=== PATIENT | male | born 1995 | race Caucasian/White ===

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

== ENCOUNTER 2017-01-29 18:46 | Observation (INO) | payer SELFPAY ==
[2017-01-29] MEDS ORDERED: HYDROmorphONE/DILAUDID 1 MG/ML INJ IVP ONE (19:42)
[2017-01-29 19:59] LABS: % IMMATURE GRANULYOCYTES 0.6 % (0.0-1.1); ABSOLUTE IMMATURE GRANULOCYTES 0.08 10^3/uL (0.00-0.10); ADD DIFF? NO; ADD MORPH? NO; ADD SCAN? NO; ATYPICAL LYMPHOCYTE FLAG 10 (0-99); FRAGMENT RBC FLAG 0 (0-99); HEMATOCRIT 42.2 % (40.0-51.0); HEMOGLOBIN 14.6 g/dL (13.7-17.5); LEFT SHIFT FLG 0 (0-99); LIPEMIA HEMOLYSIS FLAG 90 (0-99); MEAN CELL HEMOGLOBIN 30.4 pg (27.9-34.1); MEAN CELL HEMOGLOBIN CONCENTR. 34.6 g/dL (32.4-36.7); MEAN CELL VOLUME 87.9 fL (81.5-99.8); MEAN PLATELET VOLUME 9.4 fL (8.7-11.7); PLATELET CLUMPS FLAG 10 (0-99); PLATELET COUNT 322 10^3/uL (150-400); RED CELL DISTRIBUTION WIDTH 11.7 % (11.5-15.2)
[2017-01-29 20:12] LABS: ANION GAP 13 mEq/L (8-16); CALCIUM 9.1 mg/dL (8.5-10.4); CARBON DIOXIDE 23 mEq/l (22-31); CHLORIDE 102 mEq/L (97-110); CREATININE 0.9 mg/dL (0.7-1.3); GLOMERULAR FILTRATION RATE > 60; GLUCOSE 108 mg/dL (70-100); SODIUM 138 mEq/L (134-144)
[2017-01-29] MEDS ORDERED: IBUPROFEN 600 MG TAB PO ONE (20:44)
--- NOTE | 2017-01-29 20:50 | EDPHY ---
H & P Stated Complaint: cyst on tailbone Time Seen by Provider: 01/29/17 19:26 HPI/ROS: CHIEF COMPLAINT: cyst HISTORY OF PRESENT ILLNESS: 21-year-old male presents emergency department with his complaining of a cyst on his butt with subjective fevers and chills and a headache. Patient states he developed pain 5 days ago that has worsened along with swelling. Patient has been taking Tylenol intermittently with mild relief of pain. Patient reports pain with bowel movements. No shortness of breath or chest pain, no lightheadedness. No other complaints. REVIEW OF SYSTEMS: A comprehensive 10 point review of systems is otherwise negative aside from elements mentioned in the history of present illness. Source: Patient Exam Limitations: No limitations - Personal History Current Tetanus/Diphtheria Vaccine: No - Medical/Surgical History Hx Asthma: No Hx Chronic Respiratory Disease: No Hx Diabetes: No Hx Cardiac Disease: No Hx Renal Disease: No Hx Cirrhosis: No Hx Alcoholism: No Hx HIV/AIDS: No Hx Splenectomy or Spleen Trauma: No Other PMH: PMHx: denies. PSHx: denies - Social History Smoking Status: Never smoked - Physical Exam Exam: Physical Exam Gen: Alert and Oriented, NAD HEENT: PERRL, moist mucous membranes NECK: no meningismus CV: regular rate and regular rhythm PULM: CTAB, no wheezes ABDOMEN: soft, non tender to palpation, BS present BACK: 4 cm x 4 cm area of induration, erythema, fluctuance to proximal gluteal cleft : no scrotal pain or swelling NEURO: Neurologically grossly intact EXTREMITIES: normal appearing SKIN: no rash or break in skin on exposed skin PSYCH: answers questions appropriately. Constitutional: Initial Vital Signs Temperature (C) 37.8 C 01/29/17 19:11 Heart Rate 110 H 01/29/17 19:11 Respiratory Rate 16 01/29/17 19:11 Blood Pressure 155/77 H 01/29/17 19:11 O2 Sat (%) 97 01/29/17 19:11 O2 Delivery Mode Room Air Allergies/Adverse Reactions: No Known Allergies Allergy (Unverified 07/04/16 07:46) Home Medications: Medication Instructions Recorded NK [No Known Home Meds] 01/29/17 Medical Decision Making Procedures: Procedure: Incision and Drainage abscess. The patient's abscess was located on the proximal gluteal cleft. Risks, benefits, alternatives discussed with the patient and consent obtained. The area was prepped and draped in sterile fashion. The patient received local anesthesia with 1% lidocaine with epinephrine. The abscess was incised with a # 11 blade and purulent drainage was expressed. The patient tolerated the procedure well. The procedure was performed by myself. ED Course/Re-evaluation: 21-year-old male presents with a pilonidal cyst x5 days with subjective fevers and chills. Patient presents with a temperature of 37.8degrees and heart [place] [address]. Abscess was drained, wound culture obtained along with blood cultures. Patient is given a gram of ertapenem and admitted to the hospitalist for observation. - Data Points Laboratory Results: Laboratory Results 01/29/17 19:45 01/29/17 19:45 01/29/17 01/29/17 19:45 19:45 WBC 14.11 10^3/uL H 10^3/uL (3.80-9.50) RBC 4.80 10^6/uL 10^6/uL (4.40-6.38) Hgb 14.6 g/dL g/dL (13.7-17.5) Hct 42.2 % % (40.0-51.0) MCV 87.9 fL fL (81.5-99.8) MCH 30.4 pg pg (27.9-34.1) MCHC 34.6 g/dL g/dL (32.4-36.7) RDW 11.7 % % (11.5-15.2) Plt Count 322 10^3/uL 10^3/uL (150-400) MPV 9.4 fL fL (8.7-11.7) Neut % (Auto) 67.5 % % (39.3-74.2) Lymph % (Auto) 23.0 % % (15.0-45.0) Morrison % (Auto) 8.1 % % (4.5-13.0) Eos % (Auto) 0.4 % L % (0.6-7.6) Baso % (Auto) 0.4 % % (0.3-1.7) Nucleat RBC Rel Count 0.0 % % (0.0-0.2) Absolute Neuts (auto) 9.54 10^3/uL H 10^3/uL (1.70-6.50) Absolute Lymphs (auto) 3.25 10^3/uL H 10^3/uL (1.00-3.00) Absolute Monos (auto) 1.14 10^3/uL H 10^3/uL (0.30-0.80) Absolute Eos (auto) 0.05 10^3/uL 10^3/uL (0.03-0.40) Absolute Basos (auto) 0.05 10^3/uL 10^3/uL (0.02-0.10) Absolute Nucleated RBC 0.00 10^3/uL 10^3/uL (0-0.01) Immature Gran % 0.6 % % (0.0-1.1) Immature Gran # 0.08 10^3/uL 10^3/uL (0.00-0.10) Sodium 138 mEq/L mEq/L (134-144) Potassium 4.0 mEq/L mEq/L (3.5-5.2) Chloride 102 mEq/L mEq/L (97-110) Carbon Dioxide 23 mEq/l mEq/l (22-31) Anion Gap 13 mEq/L mEq/L (8-16) BUN 19 mg/dL mg/dL (7-23) Creatinine 0.9 mg/dL mg/dL (0.7-1.3) Estimated GFR > 60 Glucose 108 mg/dL H mg/dL (70-100) Calcium 9.1 mg/dL mg/dL (8.5-10.4) Medications Given: Discontinued Medications Hydromorphone HCl (Dilaudid) 1 mg IVP EDNOW ONE Stop: 01/29/17 19:43 Last Admin: 01/29/17 19:55 Dose: 1 mg Departure - Departure Disposition: [facility] Clinical Impression: Pilonidal cyst with abscess Fever Qualifiers: Fever type: unspecified Qualified Code(s): R50.9 - Fever, unspecified Condition: Good Referrals: NONE *PRIMARY CARE P,. [Primary Care Provider] - As per Instructions
[2017-01-29] MEDS ORDERED: ERTAPENEM 1 GM in NS 100 ML IV ONE (20:53)
[2017-01-29] MEDS ORDERED: NS 1,000 ML IV ONE ×2 (21:01)
[2017-01-29] MEDS ORDERED: oxyCODONE IR 5 MG TAB PO PRN (21:04)
[2017-01-29] MEDS ORDERED: ONDANSETRON DISINTEGRATING 4 MG TAB PO PRN (21:04)
[2017-01-29] MEDS ORDERED: ONDANSETRON 4 MG/2 ML VIAL IVP PRN (21:04)
[2017-01-29] MEDS ORDERED: NS 1,000 ML IV SCH (21:15)
[2017-01-29] MEDS: ACETAMINOPHEN 325 MG TAB PO PRN (21:38)
--- NOTE | 2017-01-29 21:48 | GHP ---
[f rep st] HISTORY AND PHYSICAL DATE OF ADMISSION: 01/29/2017 HISTORY OF PRESENT ILLNESS: The patient is a 21-year-old gentleman with no past medical history, pre sented with enlarging, painful growth on his tailbone over the last couple of days. It felt like a p imple, but then it did not go away. His had told him to go ahead and get it taken care of, and h e did not. He presented today where he had a pilonidal cyst drained per the ER PA with whom I spoke, Monique Kenny. The patient had about a cup of pus came out. The patient was tachycardic and with a low-grade temp on presentation, he remains tachycardic. The patient denies chest pain, shortness of breath. He has had some subjective fever and chills but no rigors. Did not have any past medical history. PAST MEDICAL HISTORY: None. ALLERGIES: None. MEDICATIONS: None. SOCIAL HISTORY: No tobacco, no alcohol. 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 FAMILY HISTORY: Mother has diabetes. PHYSICAL EXAMINATION: VITAL SIGNS: Temp 37.8, blood pressure 155/77, pulse 110, breathing 16 times a minute, 97% on room air. GENERAL: In no acute distress. HEENT: Sclerae anicteric. Oropharynx c lear. Mucous membranes moist. NECK: Supple with no lymphadenopathy or JVD. LUNGS: Clear to auscu ltation bilaterally. HEART: S1, S2. Tachycardic. ABDOMEN: Soft, nontender, nondistended. On his tailbone he has an incised incision and drained pilonidal cyst. LOWER EXTREMITIES: Without edema. Calves are nontender. SKIN: Without rash. NEUROLOGIC: Nonfocal. LABORATORY DATA: White count 14, hematocrit 42, platelets are 322,000. Venous lactate 1.2. Sodium 138, potassium 4.0, chloride 102, bicarb 22, BUN 19, creatinine 0.9, glucose 108. There is no imagin g. I have discussed the case with YONI Basurto. ASSESSMENT AND PLAN: A 21-year-old gentleman with pilonidal cyst and fever. 1. Fever. I suspect this is secondary to the pilonidal cyst. It is reasonable that IV fluid resusc itated him, given ertapenem. I will not continue antibiotics. He received a dose tonight and we can re-evaluate him in the morning. 2. Question sepsis, no. 3. Prophylaxis. Pharmacologic prophylaxis is not indicated. He is 21. He is low risk. 4. Pain. Will give him some p.r.n. oxycodone. DISPOSITION: Observation status. /[id number]/MODL
[2017-01-30 04:47] LABS: % IMMATURE GRANULYOCYTES 0.5 % (0.0-1.1); ABSOLUTE IMMATURE GRANULOCYTES 0.06 10^3/uL (0.00-0.10); ADD DIFF? NO; ADD MORPH? NO; ADD SCAN? NO; ATYPICAL LYMPHOCYTE FLAG 10 (0-99); FRAGMENT RBC FLAG 0 (0-99); HEMATOCRIT 41.3 % (40.0-51.0); LEFT SHIFT FLG 0 (0-99); LIPEMIA HEMOLYSIS FLAG 90 (0-99); MEAN CELL HEMOGLOBIN 30.1 pg (27.9-34.1); MEAN CELL HEMOGLOBIN CONCENTR. 33.9 g/dL (32.4-36.7); MEAN CELL VOLUME 88.8 fL (81.5-99.8); MEAN PLATELET VOLUME 9.7 fL (8.7-11.7); PLATELET CLUMPS FLAG 0 (0-99); PLATELET COUNT 275 10^3/uL (150-400); RED BLOOD CELL COUNT 4.65 10^6/uL (4.40-6.38); RED CELL DISTRIBUTION WIDTH 11.7 % (11.5-15.2)
[2017-01-30 05:11] LABS: ANION GAP 9 mEq/L (8-16); CALCIUM 8.5 mg/dL (8.5-10.4); CARBON DIOXIDE 25 mEq/l (22-31); CHLORIDE 107 mEq/L (97-110); CREATININE 0.9 mg/dL (0.7-1.3); GLOMERULAR FILTRATION RATE > 60; GLUCOSE 110 mg/dL (70-100); POTASSIUM 3.8 mEq/L (3.5-5.2); SODIUM 141 mEq/L (134-144)
[2017-01-30 08:16] VITALS: BP 129/70; PULSE 64; RESP 17; TEMP 97.9; O2SAT 99
--- NOTE | 2017-01-30 10:14 | ASMTCMCOM ---
CM Note CM Note Notes: Chart reviewed, pt is a 21 y/o man admitted w/ pilonidal cyst and fever. Pt will most likely discharge independent when medically stable w/ supportive . No therapies ordered. CM available for changes. Date Signed: 01/30/2017 10:14 AM Electronically Signed By:KELBY Salas
[2017-01-30] MEDS: ACETAMINOPHEN 325 MG TAB PO PRN (10:24)
[2017-01-30] MEDS ORDERED: CEPHALEXIN 500 MG CAP PO SCH (11:15)
--- NOTE | 2017-01-30 11:21 | PDDCSUM ---
Discharge Summary Discharge Summary: DISCHARGE SUMMARY FOLLOW-UP ITEMS: Wound reassessment, wound culture pending at time discharge DATE OF ADMISSION: 01/29/2017 DATE OF DISCHARGE: 01/30/2017 DISCHARGE DIAGNOSES: 1. Acute cellulitis 2. Abscess 3. Pilondial Cyst CONSULTATIONS: Wound care PROCEDURES / IMAGING: Incision and drainage in the emergency department CHIEF COMPLAINT: Acute buttock pain and drainage SUBJECTIVE: Patient is feeling well at time discharge, he not experiencing any subjective fevers, his pain is well controlled PHYSICAL EXAM ON DISCHARGE: Systolic blood pressure 110-140, heart rate 60, afebrile since 9:00 p.m. last night, satting well on room air, there is some mild tender blanching induration around the incision site of spanning approximately 5-10 cm in diameter, with central incision packing, no erythema extending beyond the indurated portion LABS ON DISCHARGE: White blood cell count 12,800, creatinine 0.9, swab positive for Gram-positive cocci, lactic acid normal HOSPITAL COURSE BY PROBLEM: 1. Cellulitis and abscess. In addition to experiencing upon dull cyst, the patient has cellulitis and abscess in the affected area as evidenced by indurated skin with blanchable erythema and tenderness approximately 5-10 cm diameter around the affected site. Patient underwent incision and drainage in the emergency department approximately half cup of pus was drained from the affected area. Patient also had notable leukocytosis and fever, both of which have improved since drainage of the affected area. Given that there are concerns for surrounding soft tissue cellulitis, the patient should receive a total of 7 days of antibiotics in addition to the therapeutic drainage. He had a wound care consultation, received instructions regarding packing in bandaging , and should either follow-up in the [facility] in [address] Andrew Verdugo. DISCHARGE MEDICATIONS: Please see official discharge medication reconciliation sheet in chart , Keflex 500 mg q.6 hours x7 days. DISCHARGE INSTRUCTIONS: Please follow up with wound care instructions.
--- NOTE | 2017-01-30 17:02 | ASDISCHSUM ---
Discharge Information Plan Status:Home with No Needs Medically Cleared to Leave:01/30/2017 Discharge Date:01/30/2017 12:46 PM CM D/C Disposition:Home, Routine, Self-Care ADT D/C Disposition:Home, Routine, Self-Care Projected Discharge Date:02/01/2017 12:00 AM Transportation at D/C: Discharge Delay Reason: Follow-Up Date:02/01/2017 12:00 AM Discharge Slot: Final Diagnosis: Placement Information Patient Contact Information Contact Name:ROZ Relationship:Friend Address: Work Phone: City: [facility] Phone: State/[place] Code: Email: Financial Information Financial Class:Self-Pay Primary Plan Desc:SELF PAY Primary Plan Number: Secondary Plan Desc: Secondary Plan Number: Assessment Information [facility] CM Progress Note CM Note CM Note Notes: Chart reviewed, pt is a 21 y/o man admitted w/ pilonidal cyst and fever. Pt will most likely discharge independent when medically stable w/ supportive . No therapies ordered. CM available for changes. Date Signed: 01/30/2017 10:14 AM Electronically Signed By:KELBY Salas Intervention Information
== END 2017-01-30 12:46 | disposition home or self-care (01) ==
LOC: F2W 21:59
PROVIDERS: ADMIT Internal Medicine; ATTEND Internal Medicine
PROC: 0H98XZZ Drainage of Buttock Skin, External Approach (ICD-10-PCS; principal; 2017-01-29)
DX: L05.01 Pilonidal cyst with abscess (principal); L03.317 Cellulitis of buttock; R50.9 Fever, unspecified
CPT/HCPCS: 96374; G0378; J1170; J1335

== ENCOUNTER 2018-08-07 22:15 | Emergency (ER) | payer OTHER ==
--- NOTE | 2018-08-07 22:36 | EDPHY ---
General Time Seen by Provider: 08/07/18 22:35 Narrative: CLINICAL IMPRESSION: Right gluteal abscess with overlying cellulitis ASSESSMENT/PLAN: Patient is a 23-year-old male with no significant medical history who presents to the emergency department with enlarging painful growth right superior buttock , history of gluteal abscess at this location 2 years prior. Patient is afebrile, he is not toxic appearing and in no acute distress. His abdomen was soft, I was unable to elicit any tenderness to palpation on examination. Physical exam revealed a 3 cm area of erythema and calor superior right of the gluteal cleft, 2 cm of induration with central fluctuance. Patient was noted to be tachycardic on arrival, he has had no constitutional symptoms and states that he otherwise feels well. History of physical examination is consistent with right gluteal abscess with associated cellulitis. There was no evidence of deep space infection, necrotizing skin infection or rectal abscess. The abscess was incised and drained, a small amount of purulent drainage was expressed and loculations were broken up. The cavity was irrigated and a small amount of packing was placed. His wound culture was reviewed from his previous admission, no evidence of Staph aureus or MRSA. Patient was given 2 Percocet and Keflex in the emergency department, he will continue Keflex for 1 week. On repeat examination prior to discharge he is well-appearing, he reports he feels much better and declines any need for further pain control. His heart rate did improve to 110 on my examination. As he reports he is feeling otherwise well, and his examination was otherwise benign I did not feel that laboratory studies or admission was warranted; I do not suspect sepsis. He is well established at [facility], he is very comfortable with wound care and packing. He will follow up on Thursday for wound check and repeat examination. Very conservative return precautions were discussed with him, he will return for development of fever, nausea, vomiting, increased pain, increased swelling or for any other concerning symptom. Patient verbalizes understanding and he is in agreement with this plan. DIFFERENTIAL DX: Differential diagnosis including but not limited to pilonidal cyst, abscess, deep space infection, cellulitis, rectal abscess ED PROCEDURES: Procedure: Abscess drainage. The patient's abscess was located superior to the gluteal cleft on the right side. I obtained verbal consent from the patient to drain the abscess who was informed about the possibility of bleeding and pain. The abscess was incised with an 11 blade and a small amount of purulent drainage was expressed. I irrigated the wound and placed some packing. The patient tolerated the procedure well. The procedure was performed by myself. ED COURSE: 2254: Case discussed with Dr. Castro. Reviewed his previous admission for gluteal abscess. 2300: Previous culture reviewed which revealed white blood cells, Gram- positive cocci however no evidence of Staph aureus or MRSA. 2340: On repeat examination the patient is comfortable appearing. He reports he is feeling much better and denies any need for further pain control. His heart rate is normalizing down to 110. CHIEF COMPLAINT: Buttock pain HPI: Patient is a 23-year-old male with no significant medical history presents to the emergency department with right buttock pain. Patient reports last year he was diagnosed with large abscess with associated cellulitis secondary to pilonidal cyst 2 years prior. Patient reports he was admitted at that time for brief period, required incision and drainage and had complete resolution of his symptoms. Patient has had no recurrence since, reports on he felt discomfort at the site of his previous abscess. There was no appreciable bump at the time, he did notice a small bump which starting to form yesterday. Patient took some Tylenol prior to arrival with only mild improvement of his discomfort. Patient denies any fever, chills, rigors, nausea, vomiting or abdominal pain. He reports that this is much less severe in comparison to when he was seen and evaluated 2 years prior. Appetite has been normal. He denies any rectal pain or pain with defecation. He denies any urinary symptoms to include dysuria, hematuria or frequency. Patient did require packing last time , was followed closely by [facility]. Has not required surgical intervention. PMH: Gluteal abscess Pertinent Past Surgical History: Incision and drainage of gluteal abscess Family History: Not contributory Social History: Denies REVIEW OF SYSTEMS: All other systems negative Constitutional: No fever, no chills, appetite change. Eyes: No discharge, vision change ENT: No sore throat, congestion, ear pain. Cardiovascular: No chest pain, no palpitations. Respiratory: No cough, no shortness of breath. Gastrointestinal: No abdominal pain, no vomiting, diarrhea. Genitourinary: No hematuria, dysuria, flank pain or pelvic pain. Superior right buttock pain Musculoskeletal: No back pain, joint swelling, joint pain, myalgias. Skin: No rashes, color change. Neurological: No headache, dizziness, weakness. PHYSICAL EXAM: General Appearance: Alert, well-appearing and in no acute distress. HENT: Normocephalic, atraumatic. Bilateral external ears are normal. Bilateral tympanic membranes are normal with pearly perez reflex. Nares are clear, mucosa is pink. Oropharynx is clear, uvula is midline. There is no tonsillar enlargement or exudate. The dentition is normal. Eyes: PERRLA, no acute vision change, nystagmus, swelling, discharge, pain or photosensitivity. Conjunctiva pink, no pallor or injection Neck: Supple, nontender, no lymphadenopathy, no midline pain, FROM, no meningismus. Respiratory: There are no retractions, lungs are clear to auscultation. Cardiac: Tachycardic, no murmurs or gallops. Gastrointestinal: Abdomen is soft, bowel sounds normal, no masses/hernia. I am unable to elicit any tenderness to palpation of his abdomen, there is no rigidity, guarding or focal peritoneal findings. Superior to the gluteal cleft on the right side there is a 3 cm area of erythema and calor, 2 cm of induration with central fluctuance. There is an old incision at this site consistent with previous abscess. Neurological: Alert and oriented x 3, CN 2-12 grossly intact, normal gait no ataxia, DTR's intact, normal sensation and strength Skin: Warm, dry, no rashes, no nodules on palpation. Musculoskeletal: Extremities are symmetrical, full range of motion, no tenderness, deformity, swelling, or erythema. Psychiatric: Patient is oriented X 3, there is no agitation. MEDICAL DECISION MAKING: Patient was seen independently. Secondary supervising physician at time of evaluation was Dr. Castro, he did not evaluate this patient. Diagnosis: Right gluteal abscess with cellulitis. New, requires workup Summary: See Assessment and Plan for summary of ED visit Clinical lab tests: Not applicable. Independent visualization of images, tracing, or specimens: Not applicable. Decision to obtain medical records or history from someone other than the patient: No Review / Summarize previous medical records: Yes Discussed patient with another provider: Yes, Dr. Castro Patient Progress: Stable, discharge. - History Smoking Status: Never smoked - Objective Vital Signs: Initial Vital Signs Temperature (C) 37.2 C 08/07/18 22:17 Heart Rate 131 H 08/07/18 22:17 Respiratory Rate 16 08/07/18 22:17 Blood Pressure 152/92 H 08/07/18 22:17 O2 Sat (%) 96 08/07/18 22:17 O2 Delivery Mode Room Air Allergies/Adverse Reactions: No Known Allergies Allergy (Verified 08/07/18 22:16) Home Medications: Medication Instructions Recorded Cephalexin [Keflex (*)] 500 mg PO Q6H #28 cap 08/07/18 Medications Given: Discontinued Medications Cephalexin (Keflex 500 Mg Prepack#4) 1 btl TAKEHOME EDNOW ONE PRN Reason: Protocol Stop: 08/07/18 23:44 Last Admin: 08/07/18 23:53 Dose: 1 btl Cephalexin HCl (Keflex) 500 mg PO EDNOW ONE PRN Reason: Protocol Stop: 08/07/18 22:44 Last Admin: 08/07/18 23:01 Dose: 500 mg Oxycodone/Acetaminophen (Percocet 5/325) 2 tab PO EDNOW ONE Stop: 08/07/18 22:42 Last Admin: 08/07/18 23:00 Dose: 2 tab Departure - Departure Disposition: Home, Routine, Self-Care Clinical Impression: Abscess, gluteal, right, Cellulitis, gluteal, right Condition: Good Instructions: Cephalexin (By mouth), Cellulitis (ED) Additional Instructions: DISCHARGE INSTRUCTIONS FROM YOUR DOCTOR Thank you for visiting our emergency department today. Please keep in mind that discharge from the emergency department does not mean that there is nothing wrong - it simply means that we have not identified an emergency condition that requires further evaluation or treatment in the hospital. You should always plan to follow up with primary care for re-evaluation of your condition in the next 2-3 days. Rest, drink plenty of fluids, healthy foods, all to to help your immune system fight the infection and to help the healing process. There is a wick left in place, removed this by small amount daily until it falls out. Keep the wound area clean. Wear loose clothing. Apply clean, warm compresses as much as possible. Keflex (antibiotic) as prescribed four times daily, for the next 7 days. Consume yogurt and take over the counter probiotics to help prevent diarrhea from the antibiotics. For pain control: You may take Tylenol, I recommend 500-1000 mg every 6-8 hours as needed. Take with food and a full glass of water. Stop taking if this is upsetting her stomach. Do not exceed 4000 mg in a 24 hr period. You may also take ibuprofen, recommend 400 mg every 6 hr. Take with food and a full glass of water. Stop taking if this upsets her stomach. Do not exceed 2400 mg in a 24 hr period. Continue your regular medications as prescribed. Schedule a follow-up appointment with your primary care physician in the next 24 -48 hours for a wound check to ensure you are healing and don't require further antibiotics or intervention. Return for persistent or recurrent fever, vomiting, inability to tolerate the antibiotic(s) by mouth, redness, swelling, warmth, or streaking around the wound , new lesions, extremity swelling, pain out of proportion to what you would expect for this infection, chest or abdominal pain, vomiting, throat tightness, facial swelling, difficulty breathing or swallowing, sores in the mouth or the eyes, or for any other new, worsening or worrisome symptoms. People present with illnesses and injuries in different ways, and it is always possible that we have missed something. You may always return for re-evaluation if symptoms worsen or if they are not improving or if you develop new/different symptoms. Again, thank you for choosing our emergency department. We hope that you feel better. Referrals: NONE *PRIMARY CARE P,. [Primary Care Provider] - As per Instructions [facility],. [Clinic] - As per Instructions Prescriptions: Cephalexin [Keflex (*)] 500 mg PO Q6H #28 cap
[2018-08-07] MEDS ORDERED: OXYCODONE/APAP 5/325 TAB PO ONE (22:41)
[2018-08-07] MEDS ORDERED: CEPHALEXIN 500 MG CAP PO ONE (22:43)
[2018-08-07] MEDS ORDERED: CEPHALEXIN 500MG PREPACK#4 BTL TAKEHOME ONE (23:43)
[2018-08-07 23:53] VITALS: BP 145/84
== END 2018-08-07 23:58 | disposition home or self-care (01) ==
PROC: 0H98XZZ Drainage of Buttock Skin, External Approach (ICD-10-PCS; principal; 2018-08-07)
DX: L02.31 Cutaneous abscess of buttock (principal)